=== PATIENT | female | born 1980 | race Caucasian/White ===

== ENCOUNTER → 2021-07-26 13:11 | Outpatient (BNVA) | payer OTHER, SELFPAY | PROVIDERS: Visit Provider Nurse Practitioner Women's Health | DX: Z01.419 Encounter for gynecological examination (general) (routine) without abnormal findings (principal); F41.9 Anxiety disorder, unspecified | CPT/HCPCS: 87624 ==

== ENCOUNTER 2021-09-04 07:28 | Outpatient (CLI) | payer OTHER, SELFPAY ==
--- NOTE | 2021-09-04 07:33 | MM_ITS ---
WS: [id number] BILATERAL SCREENING 3D TOMOSYNTHESIS DIGITAL MAMMOGRAM WITH CAD HISTORY: SCREENING COMPARISON: None available. Bilateral CC and MLO views submitted. Computer aided detection analyzed. Breast composition: The breasts are heterogeneously dense, which may obscure small masses. No suspici ous masses, microcalcifications or architectural distortion. Benign calcification posterior RIGHT soniya ast. MM/[id number] IMPRESSION: BI-RADS: 2-Benign FOLLOW UP: 1 Year Follow-up
== END 2021-09-04 07:29 | disposition home or self-care (01) ==
LOC: RAD 07:29
PROVIDERS: Visit Provider Nurse Practitioner Women's Health
DX: Z12.31 Encounter for screening mammogram for malignant neoplasm of breast (principal)
CPT/HCPCS: 77063; 77067

== ENCOUNTER 2022-09-08 08:31 | Outpatient (CLI) | payer BC, SELFPAY ==
--- NOTE | 2022-09-08 08:38 | MM_ITS ---
WS: [id number] Bilateral screening 3D tomosynthesis digital mammogram, 09/08/2022 Clinical Data: Z12.39 - Encounter for other screening for malignant neop... Comparison: 09/04/2021 Findings: The breast parenchymal pattern shows heterogeneous density. No spiculated masses or clustered calcifi cations are seen. There are no secondary signs of carcinoma. There are lymph nodes in both axilla. MM/[id number] Impression: 1. Negative bilateral mammogram unchanged. 2. Recommend annual screening mammograms. BIRADS: 1-Negative FOLLOW UP: 1 Year Follow-up The CAD mold checker was used.
== END 2022-09-08 08:32 | disposition home or self-care (01) ==
LOC: RAD 08:35
PROVIDERS: PCP Nurse Practitioner Women's Health; Visit Provider Nurse Practitioner Women's Health
DX: Z12.31 Encounter for screening mammogram for malignant neoplasm of breast (principal)
CPT/HCPCS: 77063; 77067

== ENCOUNTER → 2022-11-06 11:10 | Outpatient (BNVA) | payer BC, SELFPAY | PROVIDERS: PCP Nurse Practitioner Women's Health; Visit Provider Nurse Practitioner Women's Health | DX: R30.0 Dysuria (principal) | CPT/HCPCS: 84315; 87077; 87086; 87184 ==